=== PATIENT | male | born 1995 | race Caucasian/White ===

== ENCOUNTER 2017-08-06 20:47 | Emergency (ER) | payer OTHER ==
[2017-08-06 20:52] VITALS: BP 120/65; PULSE 66; TEMP 98.5; BMI 25.1
[2017-08-06] MEDS ORDERED: DEXAMETHASONE 4 MG TABLET (FP) PO ONE (21:31)
[2017-08-06] MEDS ORDERED: DEXAMETHASONE 4 MG TABLET (FP) ONE (21:34)
--- NOTE | 2017-08-06 21:39 | PDOC ---
History of Present Illness - General Chief Complaint: Edema Stated Complaint: ALLERGIC REACTION Time Seen by Provider: 08/06/17 21:30 - History of Present Illness Initial Comments: 08/06/17 21:34 CHIEF COMPLAINT: lip swelling HISTORY OF PRESENT ILLNESS: 22 yo M with no PMHp presents to fast track with lower lip swelling. Patient states " I don't know what happened, but I had some dry skin on my lip, and I kept picking picking picking at it, and then I was chewing on it, and I put some hydrogen peroxide on it last night, and then it blew up today." Patient denies any swelling to tongue, throat, neck, or any difficulty speaking, swallowing or breathing, and denies fever, chills, N/V/D. Denies any URI symptoms. PAST MEDICAL HISTORY: Denies past medical history FAMILY HISTORY: Denies SOCIAL HISTORY:Denies tobacco, alcohol, illicit drug use. SURGICAL HISTORY: Denies ALLERGIES: No known drug allergies REVIEW OF SYSTEMS General/Constitutional: Denies fever or chills. Denies weakness, weight change. HEENT: Denies change in vision. Denies ear pain or discharge. Denies sore throat. Cardiovascular: Denies chest pain or shortness of breath. Respiratory: Denies cough, wheezing, or hemoptysis. Gastrointestinal: Denies nausea, vomiting, diarrhea or constipation. Denies rectal bleeding. Genitourinary: Denies dysuria, frequency, or change in urination. Musculoskeletal: Denies joint or muscle swelling or pain. Denies neck or back pain. Skin: "My lip blew up." PHYSICAL EXAM General Appearance: Well-appearing, appropriately dressed. No apparent distress , no intoxication. HEENT: Swelling to left lower lip with granulated tissue and erythema. EOMI, PERRLA, normal ENT inspection, normal voice, TMs normal, pharynx normal. No conjunctival pallor. No photophobia, scleral icterus. Neck: Supple. Trachea midline. No tenderness, rigidity, carotid bruit, stridor , lymphadenopathy, or thyromegaly. Respiratory/Chest: Lungs CTAB. No shortness of breath, chest tenderness, respiratory distress, accessory muscle use. No crackles, rales, rhonchi, stridor , wheezing, dullness Cardiovascular: RRR. S1, S2. No JVD, murmur, bradycardia, tachycardia. Vascular Pulses: Dorsalis-Pedis (R): 2+, Dorsalis-Pedis (L): 2+ Gastrointestinal/Abdominal: Normal bowel sounds. Abdomen soft, non-distended. No tenderness or rebound tenderness. No organomegaly, pulsatile mass, guarding , hernia, hepatomegaly, splenomegaly. Lymphatic: No adenopathy, tenderness. Musculoskeletal/Extremities: Normal inspection. FROM of all extremities, normal capillary refill. Pelvis Stable. No CVA tenderness. No tenderness to extremities, pedal edema, swelling, erythema or deformity. Integumentary: Appropriate color, dry, warm. 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 Fully oriented, alert. Appropriate mood/affect. Motor strength 5/5. No appreciable EOM palsy, facial droop or sensory deficit. Past History - Past Medical History Allergies/Adverse Reactions: Allergies Allergy/AdvReac Type Severity Reaction Status Date / Time No Known Allergies Allergy Verified 08/06/17 20:50 Home Medications: Ambulatory Orders Amoxicillin/Potassium Clav [Augmentin 875-125 Tablet] 1 each PO BID #14 tablet 08/06/17 COPD: No - Suicide/Smoking/Psychosocial Hx Smoking History: Current some day smoker Number of Cigarettes Smoked Daily: 2 Information on smoking cessation initiated: No *Physical Exam - Vital Signs Last Vital Signs Temp Pulse Resp BP Pulse Ox 98.5 F 66 18 120/65 97 08/06/17 20:50 08/06/17 20:50 08/06/17 20:50 08/06/17 20:50 08/06/17 20:50 Medical Decision Making - Medical Decision Making 08/06/17 21:41 22 yo M with no PMHp presents to fast track with lower lip swelling. -decadron po -augmentin rx Advised patient to take medication as prescribed and of signs and symptoms for return to ED. Patient verbalized understanding and agrees to plan. *DC/Admit/Observation/Transfer Diagnosis at time of Disposition: Infection of lip - Discharge Dispostion Disposition: HOME Condition at time of disposition: Stable Admit: No - Prescriptions Prescriptions: Amoxicillin/Potassium Clav [Augmentin 875-125 Tablet] 1 each PO BID #14 tablet - Referrals - Patient Instructions Additional Instructions: Please take medications as prescribed. Complete the entire course of antibiotics , even after your symptoms have improved. If you develop any fever, chills, nausea, vomiting, diarrhea, rash, swelling of the tongue, throat, neck, or difficulty speaking/swallowing/breathing, please return to the ER immediately. - Post Discharge Activity
== END 2017-08-06 21:43 | disposition home or self-care (01) ==
LOC: JERFT 20:47
DX: K13.0 Diseases of lips (principal); B99.8 Other infectious disease; F17.210 Nicotine dependence, cigarettes, uncomplicated
CPT/HCPCS: 99281-25